=== PATIENT | female | born 1960 | race American Indian/Alaskan Native ===

== ENCOUNTER 2019-10-02 20:47 | Observation (INO) | payer OTHER ==
--- NOTE | 2019-10-02 20:58 | Emergency Department Report ---
Blank Doc - Documentation Documentation: 59-year-old female that presents with dizziness, weakness, and headache. HX of CVA. STated symptoms started at 3 AM this morning (>4.5 hours). This initial assessment/diagnostic orders/clinical plan/treatment(s) is/are subject to change based on patient's health status, clinical progression and re- assessment by fellow clinical providers in the ED. Further treatment and workup at subsequent clinical providers discretion. Patient/guardians urged not to elope from the ED as their condition may be serious if not clinically assessed and managed. Initial orders include: 1- Patient sent to [facility] for further evaluation and treatment 2- stroke protocol ordered
[2019-10-02 21:20] LABS: Basophils # (Auto) 0.1 K/mm3 (0.0-0.1); Eosinophils # (Auto) 0.1 K/mm3 (0.0-0.4); Eosinophils % (Auto) 0.8 % (0.0-4.3); Hematocrit 43.6 % (30.3-42.9); Hemoglobin 14.3 gm/dl (10.1-14.3); Lymphocytes # (Auto) 2.5 K/mm3 (1.2-5.4); Lymphocytes % (Auto) 30.8 % (13.4-35.0); Mean Corpuscular HGB Conc 33 % (30-34); Mean Corpuscular Volume 84 fl (79-97); Monocytes # (Auto) 0.6 K/mm3 (0.0-0.8); Monocytes % (Auto) 7.5 % (0.0-7.3); Platelet Count 200 K/mm3 (140-440); Red Blood Count 5.19 M/mm3 (3.65-5.03); Red Cell Distribution Width 14.4 % (13.2-15.2)
[2019-10-02 21:32] LABS: INR 0.86 (0.87-1.13)
[2019-10-02 21:33] LABS: Partial Thromboplastin Time 23.5 Sec. (24.2-36.6); Thrombin Time 15.5 Sec. (15.1-19.6)
[2019-10-02 21:39] LABS: Creatine Kinase MB 2.3 ng/mL (0.0-4.0)
[2019-10-02 21:40] LABS: Alanine Aminotransferase 21 units/L (7-56); Albumin 3.8 g/dL (3.9-5); BUN/Creatinine Ratio 20; Blood Urea Nitrogen 16 mg/dL (7-17); Calcium 9.8 mg/dL (8.4-10.2); Hemolysis Index 15
[2019-10-02] MEDS ORDERED: NITROGLYCERIN 0.4 MG TAB SUBL SL PRN (22:27)
[2019-10-02] MEDS ORDERED: METOCLOPRAMIDE 10 MG/2 ML INJ IV ONE (22:27)
[2019-10-02] MEDS ORDERED: diphenhydrAMINE 50 MG/ML VIAL IV ONE (22:27)
[2019-10-02] MEDS ORDERED: FAMOTIDINE 20 MG/2 ML INJ IV ONE (22:27)
--- NOTE | 2019-10-02 22:29 | Emergency Department Report ---
ED General Adult HPI - General Chief complaint: Headache Stated complaint: AGGARWAL,DIZZY Time Seen by Provider: 10/02/19 20:55 Source: patient, RN notes reviewed Mode of arrival: Ambulatory Limitations: No Limitations - History of Present Illness Initial comments: The patient is a 59-year-old female. The patient is not known to this provider previously. She has a past medical history of morbid obesity, stroke, diabetes, and presents to the ER with multiple complaints. The patient's first complaint is headache and dizziness. The headache is frontal, bitemporal, midline, and occipital. The headache has been intermittent over the past week. She gets frequent headaches. This headache is not described as sudden or thunderclap in nature. It did not reach maximal intensity within an hour. It is not the most intense headache of her life. The headache is associated with dizziness, which she further describes as a sensation of unsteady gait. This started at approximately 3:00 Wednesday morning. There is no tinnitus. There is no sensation of room spinning. The patient indicates that she felt unsteady on her feet. It is now resolved. Simultaneously, the patient also endorses a complaint of central chest pressure, which did not radiate to the back, arms and neck, no vomiting, no diaphoresis, but thinks that she may have had a recent road trip to [place]. There is no recent leg pain or leg swelling, hematemesis or bright red blood per rectum. Her trip to [place] was over 9 hours. The patient reports that she is not having ataxia at this time. She has mild chest discomfort at this time. -: Gradual, Sudden Location: head, chest Radiation: other Quality: other Consistency: other Improves with: other Worsens with: other - Related Data Allergies Allergy/AdvReac Type Severity Reaction Status Date / Time metformin Allergy Diarrhea Verified 10/02/19 20:52 ED Review of Systems ROS: Stated complaint: AGGARWAL,DIZZY Other details as noted in HPI Constitutional: denies: fever Eyes: denies: vision change ENT: denies: congestion Respiratory: denies: wheezing Cardiovascular: chest pain. denies: syncope Genitourinary: denies: dysuria Musculoskeletal: myalgia Skin: denies: lesions Neurological: headache, weakness, abnormal gait. denies: numbness, pa resthesias, vertigo Psychiatric: anxiety Hematological/Lymphatic: denies: easy bleeding ED Past Medical Hx - Social History Smoking Status: Never Smoker Substance Use Type: None ED Physical Exam - General Limitations: No Limitations General appearance: alert, in no apparent distress, obese - Head Head exam: Present: atraumatic, normocephalic - Eye Eye exam: Present: normal appearance, PERRL, EOMI. Absent: nystagmus - ENT ENT exam: Present: normal exam, normal orophraynx, mucous membranes moist, normal external ear exam - Neck Neck exam: Present: normal inspection, full ROM. Absent: tenderness, meningism us - Respiratory Respiratory exam: Present: normal lung sounds bilaterally. Absent: respiratory distress - Cardiovascular Cardiovascular Exam: Present: regular rate, normal rhythm, normal heart sounds. Absent: bradycardia, tachycardia, irregular rhythm, systolic murmur, diastolic murmur, rubs, gallop - GI/Abdominal GI/Abdominal exam: Present: soft. Absent: distended, tenderness, guarding, rebound, rigid, pulsatile mass - Extremities Exam Extremities exam: Present: normal inspection, full ROM, pedal edema, other (2+ pulses noted in the bilateral upper and lower extremities. There is no long bony tenderness. The pelvis is stable. The muscular compartments are soft. There is no palpable cord. There is no redness, pus or streaking.). Absent: calf tenderness - Back Exam Back exam: Present: normal inspection. Absent: CVA tenderness (L), paraspinal tenderness, vertebral tenderness - Neurological Exam Neurological exam: Present: alert (there is no past-pointing. There is normal [id number]-lo-duzo. There is no pronator drift. Patient walks with a broad-based gait which she states is chronic for her.), oriented X3, other (there is no facial droop. Tongue is midline. Extraocular movements are intact bilaterally. Walking with a steady gait. Speaking in full sentences. Normal appropriate thought content. 5 out of 5 strength in 4 extremities. Sensation is intact to light touch in 4 extremities.). Absent: motor sensory deficit - Psychiatric Psychiatric exam: Present: anxious - Skin Skin exam: Present: warm, dry, intact, normal color. Absent: rash ED Course Vital Signs 10/02/19 10/02/19 10/02/19 20:53 20:55 22:12 Temperature 98.4 F 98.4 F Pulse Rate 67 69 75 Respiratory 18 18 16 Rate Blood Pressure 187/92 187/92 O2 Sat by Pulse 100 100 100 Oximetry 10/02/19 10/02/19 10/02/19 22:15 22:22 23:00 Temperature Pulse Rate 70 64 Respiratory 16 18 16 Rate Blood Pressure 161/83 161/83 O2 Sat by Pulse 98 99 Oximetry 10/02/19 10/03/19 10/03/19 23:45 00:00 01:26 Temperature Pulse Rate 76 76 Respiratory 14 Rate Blood Pressure 162/73 161/83 O2 Sat by Pulse 97 97 Oximetry 10/03/19 10/03/19 10/03/19 01:30 01:40 01:50 Temperature Pulse Rate 71 72 67 Respiratory 16 14 13 Rate Blood Pressure O2 Sat by Pulse 98 98 98 Oximetry 10/03/19 10/03/19 10/03/19 02:00 02:10 02:20 Temperature Pulse Rate 70 70 66 Respiratory 12 13 16 Rate Blood Pressure O2 Sat by Pulse 97 98 97 Oximetry 10/03/19 10/03/19 10/03/19 02:30 02:40 02:50 Temperature Pulse Rate 66 63 61 Respiratory 13 14 12 Rate Blood Pressure O2 Sat by Pulse 97 97 96 Oximetry 10/03/19 10/03/19 10/03/19 03:00 03:10 03:17 Temperature Pulse Rate 69 65 72 Respiratory 15 14 Rate Blood Pressure 187/88 O2 Sat by Pulse 98 96 Oximetry 10/03/19 03:20 Temperature Pulse Rate 75 Respiratory 10 L Rate Blood Pressure O2 Sat by Pulse 97 Oximetry - Reevaluation(s) Reevaluation #1: 10/03/19 00:02 Differential diagnosis, including but not limited to: Complex migraine, TIA, intracranial lesion, GERD, gastritis, hiatal hernia, pneumonia, acute coronary syndrome, pulmonary embolism Assessment and plan: 59-year-old female with 2 complaints Complaints #1, headache with associated intermittent dizziness, and unsteady gait. Headache present for greater than 4.5 hours, symptoms started more than 4.5 hours ago, patient has NIH score of 0, and she is therefore not a TPA candidate. Given NIH score of 0 at this time, is not meet criteria for TPA, and does not have any lateralizing findings that would necessitate emergent large vessel imaging. Noncontrast CT scan of the brain is negative for acute disease. Headache by history is not historically consistent with subarachnoid hemor rhage. We will treat her headache supportively and symptomatically, she'll need to be evaluated for TIA given elevated ABCD 2 score. Complaint #2, chest pain Not tachycardic, tachypneic or hypoxic. However, EKG abnormal without prior for comparison. Reports a recent road trip to [place]. Patient moderate risk for major adverse cardiac event as per heart score (4), therefore, d-dimer will be sent, serial troponins, EKGs will be obtained, if no emergent pathology identified in the emergency room, plan to admit patient to the medical service for accelerated cardiac risk stratification. The patient does not have a true IV contrast allergy as she does not have anaphylaxis or airway symptoms. On a prior contrast exposure, she developed some flushed feeling and nausea, which appears to be consistent with known possible side effect. Patient is appropriately educated. Reevaluation #2: 10/03/19 01:[address] scan of the brain is negative for acute disease. CT scan of the chest is negative for acute disease. Troponin negative 2. Patient at moderate risk for major adverse cardiac event,, therefore, we will admit her for expedited workup and risk stratification. Hospital physician, Dr. Tony to admit the patient. ED Medical Decision Making - Lab Data Result diagrams: 10/02/19 21:07 10/02/19 21:07 Vital Signs 10/02/19 10/02/19 10/02/19 20:53 20:55 22:12 Temperature 98.4 F 98.4 F Pulse Rate 67 69 69 Respiratory 18 18 14 Rate Blood Pressure 187/92 187/92 O2 Sat by Pulse 100 100 99 Oximetry 10/02/19 10/02/19 10/02/19 22:15 22:22 23:45 Temperature Pulse Rate 70 76 Respiratory 16 18 Rate Blood Pressure 161/83 162/73 O2 Sat by Pulse 98 99 Oximetry Lab Results 10/02/19 10/02/19 10/02/19 Range/Units 21:07 21:07 21:07 WBC 8.3 (4.5-11.0) K/mm3 RBC 5.19 H (3.65-5.03) M/mm3 Hgb 14.3 (10.1-14.3) gm/dl Hct 43.6 H (30.3-42.9) % MCV 84 (79-97) fl MCH 27 L (28-32) pg MCHC 33 (30-34) % RDW 14.4 (13.2-15.2) % Plt Count 200 (140-440) K/mm3 Lymph % (Auto) 30.8 (13.4-35.0) % Ashe % (Auto) 7.5 H (0.0-7.3) % Eos % (Auto) 0.8 (0.0-4.3) % Baso % (Auto) 1.0 (0.0-1.8) % Lymph # 2.5 (1.2-5.4) K/mm3 Ashe # 0.6 (0.0-0.8) K/mm3 Eos # 0.1 (0.0-0.4) K/mm3 Baso # 0.1 (0.0-0.1) K/mm3 Seg Neutrophils % 59.9 (40.0-70.0) % Seg Neutrophils # 5.0 (1.8-7.7) K/mm3 PT 11.8 L (12.2-14.9) Sec. INR 0.86 L (0.87-1.13) APTT 23.5 L (24.2-36.6) Sec. Thrombin Time 15.5 (15.1-19.6) Sec. Sodium 136 L (137-145) mmol/L Potassium 3.6 (3.6-5.0) mmol/L Chloride 96.4 L (98-107) mmol/L Carbon Dioxide 28 (22-30) mmol/L Anion Gap 15 mmol/L BUN 16 (7-17) mg/dL Creatinine 0.8 (0.7-1.2) mg/dL Estimated GFR > 60 ml/min BUN/Creatinine Ratio 20 % Glucose 289 H (65-100) mg/dL Calcium 9.8 (8.4-10.2) mg/dL Magnesium (1.7-2.3) mg/dL Total Bilirubin 0.40 (0.1-1.2) mg/dL AST 14 (5-40) units/L ALT 21 (7-56) units/L Alkaline Phosphatase 77 (35-129) units/L Total Creatine Kinase 116 (30-135) units/L CK-MB (CK-2) 2.3 (0.0-4.0) ng/mL CK-MB (CK-2) Rel Index 1.9 (0-4) Troponin T < 0.010 (0.00-0.029) ng/mL Total Protein 7.0 (6.3-8.2) g/dL Albumin 3.8 L (3.9-5) g/dL Albumin/Globulin Ratio 1.2 % TSH (0.270-4.200) mlU/mL Urine Bilirubin (Negative) Urine RBC (Auto) (0.0-6.0) /HPF U Epithel Cells (Auto) (0-13.0) /HPF 10/02/19 10/02/19 10/02/19 Range/Units 23:02 23:02 23:02 WBC (4.5-11.0) K/mm3 RBC (3.65-5.03) M/mm3 Hgb (10.1-14.3) gm/dl Hct (30.3-42.9) % MCV (79-97) fl MCH (28-32) pg MCHC (30-34) % RDW (13.2-15.2) % Plt Count (140-440) K/mm3 Lymph % (Auto) (13.4-35.0) % [place]he % (Auto) (0.0-7.3) % Eos % (Auto) (0.0-4.3) % Baso % (Auto) (0.0-1.8) % Lymph # (1.2-5.4) K/mm3 Ashe # (0.0-0.8) K/mm3 Eos # (0.0-0.4) K/mm3 Baso # (0.0-0.1) K/mm3 Seg Neutrophils % (40.0-70.0) % Seg Neutrophils # (1.8-7.7) K/mm3 PT (12.2-14.9) Sec. INR (0.87-1.13) APTT (24.2-36.6) Sec. Thrombin Time (15.1-19.6) Sec. Sodium (137-145) mmol/L Potassium (3.6-5.0) mmol/L Chloride (98-107) mmol/L Carbon Dioxide (22-30) mmol/L Anion Gap mmol/L BUN (7-17) mg/dL Creatinine (0.7-1.2) mg/dL Estimated GFR ml/min BUN/Creatinine Ratio % Glucose (65-100) mg/dL Calcium (8.4-10.2) mg/dL Magnesium 1.70 (1.7-2.3) mg/dL Total Bilirubin (0.1-1.2) mg/dL AST (5-40) units/L ALT (7-56) units/L Alkaline Phosphatase (35-129) units/L Total Creatine Kinase 124 (30-135) units/L CK-MB (CK-2) (0.0-4.0) ng/mL CK-MB (CK-2) Rel Index (0-4) Troponin T < 0.010 (0.00-0.029) ng/mL Total Protein (6.3-8.2) g/dL Albumin (3.9-5) g/dL Albumin/Globulin Ratio % TSH 3.930 (0.270-4.200) mlU/mL Urine Bilirubin (Negative) Urine RBC (Auto) (0.0-6.0) /HPF U Epithel Cells (Auto) (0-13.0) /HPF 10/02/19 Range/Units 23:29 WBC (4.5-11.0) K/mm3 RBC (3.65-5.03) M/mm3 Hgb (10.1-14.3) gm/dl Hct (30.3-42.9) % MCV (79-97) fl MCH (28-32) pg MCHC (30-34) % RDW (13.2-15.2) % Plt Count (140-440) K/mm3 Lymph % (Auto) (13.4-35.0) % [place]he % (Auto) (0.0-7.3) % Eos % (Auto) (0.0-4.3) % Baso % (Auto) (0.0-1.8) % Lymph # (1.2-5.4) K/mm3 Ashe # (0.0-0.8) K/mm3 Eos # (0.0-0.4) K/mm3 Baso # (0.0-0.1) K/mm3 Seg Neutrophils % (40.0-70.0) % Seg Neutrophils # (1.8-7.7) K/mm3 PT (12.2-14.9) Sec. INR (0.87-1.13) APTT (24.2-36.6) Sec. Thrombin Time (15.1-19.6) Sec. Sodium (137-145) mmol/L Potassium (3.6-5.0) mmol/L Chloride (98-107) mmol/L Carbon Dioxide (22-30) mmol/L Anion Gap mmol/L BUN (7-17) mg/dL Creatinine (0.7-1.2) mg/dL Estimated GFR ml/min BUN/Creatinine Ratio % Glucose (65-100) mg/dL Calcium (8.4-10.2) mg/dL Magnesium (1.7-2.3) mg/dL Total Bilirubin (0.1-1.2) mg/dL AST (5-40) units/L ALT (7-56) units/L Alkaline Phosphatase (35-129) units/L Total Creatine Kinase (30-135) units/L CK-MB (CK-2) (0.0-4.0) ng/mL CK-MB (CK-2) Rel Index (0-4) Troponin T (0.00-0.029) ng/mL Total Protein (6.3-8.2) g/dL Albumin (3.9-5) g/dL Albumin/Globulin Ratio % TSH (0.270-4.200) mlU/mL Urine Bilirubin Neg (Negative) Urine RBC (Auto) 3.0 (0.0-6.0) /HPF U Epithel Cells (Auto) 1.0 (0-13.0) /HPF - EKG Data -: EKG Interpreted by In EKG shows normal: sinus rhythm Rate: normal - EKG Data When compared to previous EKG there are: previous EKG unavailable 10/03/19 00:04 No prior EKGs available for comparison. Sinus rhythm, 73 bpm, premature atrial contractions. Left axis deviation, left anterior fascicular block, motion artifact, QTC prolonged. Not consistent with STEMI - Radiology Data Radiology results: report reviewed, image reviewed X-ray the chest is unremarkable for acute disease. Noncontrast CT scan of the brain is negative for acute disease. Critical care attestation.: If time is entered above; I have spent that time in minutes in the direct care of this critically ill patient, excluding procedure time. ED Disposition Clinical Impression: Acute chest pain, TIA (transient ischemic attack) Disposition: 09 OP ADMIT IP TO THIS HOSP Is pt being admited?: Yes Condition: Good
--- NOTE | 2019-10-02 23:11 | XRay Report ---
CHEST 1 VIEW INDICATION / CLINICAL INFORMATION: cp sob. COMPARISON: None available. FINDINGS: SUPPORT DEVICES: None. HEART / MEDIASTINUM: No significant abnormality. LUNGS / PLEURA: No significant pulmonary or pleural abnormality.. No pneumothorax. ADDITIONAL FINDINGS: No significant additional findings. IMPRESSION: 1. No acute findings. Signer Name: Andrew Curry MD Signed: 10/02/2019 11:07 PM Workstation Name: [id number]
--- NOTE | 2019-10-02 23:14 | Cat Scan Report ---
CT HEAD WITHOUT CONTRAST INDICATION: Stroke symptoms TECHNIQUE: Axial slices were obtained through the head. Coronal and sagittal reformatted images were obtained. COMPARISON: None available. FINDINGS: There is no intracranial hemorrhage or extra-axial fluid collection. Ventricles, basilar cisterns, an d sulci appear within normal limits for age. There is no mass lesion or midline shift. No acute jus torial infarct is identified. Bone windows demonstrate no acute osseous abnormality. Paranasal sinuses and mastoid air cells appear clear. TECHNIQUE: All CT scans at this facility use dose modulation, iterative reconstruction, automated ex posure control, weight based dosing, when appropriate, to reduce radiation dose to as low as reasonab ly achievable. IMPRESSION: 1. No acute intracranial abnormality. Signer Name: Andrew Curry MD Signed: 10/02/2019 11:09 PM Workstation Name: [id number]
[2019-10-03 00:03] LABS: Bacteria,Urine 1+ /HPF (Negative); Bilirubin,Urine NEG (Negative); Blood,Urine NEG (Negative); Color,Urine Straw (Yellow); Urobilinogen,Urine < 2.0 mg/dL (<2.0)
[2019-10-03 00:08] LABS: INR 0.87 (0.87-1.13)
[2019-10-03] MEDS ORDERED: methylPREDNISolone Sod Succinate 125 MG/2 ML INJ IV ONE (00:27)
[2019-10-03] MEDS ORDERED: ONDANSETRON 4 MG/2 ML INJ IV ONE (00:27)
[2019-10-03] MEDS ORDERED: diphenhydrAMINE 50 MG/ML VIAL IV ONE (00:27)
[2019-10-03] MEDS ORDERED: FAMOTIDINE 20 MG/2 ML INJ IV ONE (00:27)
--- NOTE | 2019-10-03 01:43 | Cat Scan Report ---
CTA of the chest with 3D Reconstruction Indication: ,cp + ddimer, light headed near syncope Technique: TECHNIQUE: Axial CT images were obtained through the chest after injection of 100 cc of Omnipaque 300 IV contrast. 3 plane MIP reconstructions were produced. All CT scans at this location are performed using CT dose reduction for ALARA by means of automated exposure control. COMPARISON: None Automatic exposure control was utilized in an attempt to reduce radiation dose. Findings: Pulmonary arteries: The main pulmonary artery and right and left pulmonary artery branches fill satis factorily with contrast. No pulmonary embolus is seen. Lungs: The lungs are clear. Mediastinum: Heart size is normal. No adenopathy is seen. Aorta: Normal in diameter. No dissection seen within limits of this exam. Impression: No pulmonary embolus is seen Signer Name: Andrew Curry MD Signed: 10/03/2019 1:39 AM Workstation Name: [id number]
[2019-10-03] MEDS ORDERED: ASPIRIN 81 MG TAB CHEW PO ONE (01:57)
[2019-10-03] MEDS ORDERED: oxyCODONE /ACETAMINOPHEN 5-325MG TAB PO PRN (03:03)
[2019-10-03] MEDS ORDERED: ONDANSETRON 4 MG/2 ML INJ IV PRN (03:03)
[2019-10-03] MEDS ORDERED: ACETAMINOPHEN 325 MG TAB PO PRN (03:03)
--- NOTE | 2019-10-03 03:05 | History and Physical Report ---
History of Present Illness History of present illness: 59-year-old woman with a history of hypertension, diabetes, hypothyroidism, CVA with right-sided weakness comes to the emergency room complaints of chest pain that started today. Patient stated that pain is in the epigastric area which she describe as a sharp achy pain, intermittent, lasting 1 minute, intensity 5/10, no radiation, cannot identify exacerbating factors. Denies shortness of breath, no diaphoresis, palpitation, vomiting. Admits to nausea . Also complained that she felt very dizzy and had difficulty ambulating and had a headache that was a bandlike sensation around her head , headache and dizziness is now resolved . She is being admitted for further work-up of chest pain Review Of Systems: Constitutional: no weight loss, fever, chills Ears, eyes, nose, mouth and throat: no nasal congestion, no nasal discharge, no sinus pressure, blurry vision, diplopia Neck: No neck pain or rigidity. Cardiovascular: No palpitations Respiratory: No s cough, shortness of breath Gastrointestinal: No hematochezia, abdominal pain Genitourinary : no dysuria, frequency , hematuria Musculoskeletal: no muscle ache , joint pain Integumentary: no rash, no pruritis Neurological: no parathesias, focal weakness Endocrine: no cold or heat intolerance, no polyuria or polydipsia Hematologic/Lymphatic: no easy bruising, no easy bleeding, no gland swelling Allergic/Immunologic: no urticaria, no angioedema. PAST MEDICAL HISTORY: hypertension, diabetes, hypertension, CVA with right- sided weakness PAST SURGICAL HISTORY: Hysterectomy, cholecystectomy FAMILY HISTORY:hypertension, diabetes SOCIAL HISTORY: Denies tobacco, drugs, social alcohol Medications and Allergies Allergies Allergy/AdvReac Type Severity Reaction Status Date / Time metformin Allergy Diarrhea Verified 10/02/19 20:52 Active Meds: Active Medications Acetaminophen (Tylenol) 650 mg PO Q4H PRN PRN Reason: Pain MILD(1-3)/Fever >100.5/AGGARWAL Nitroglycerin (Nitrostat) 0.4 mg SL .Q5MIN PRN PRN Reason: Chest Pain Last Admin: 10/02/19 23:45 Dose: 0.4 mg Documented by: Ondansetron HCl (Zofran) 4 mg IV Q8H PRN PRN Reason: Nausea And Vomiting Oxycodone/Acetaminophen (Percocet 5/325) 1 tab PO Q6H PRN PRN Reason: Pain, Moderate (4-6) Sodium Chloride (Sodium Chloride Flush Syringe 10 Ml) 10 ml IV BID SUJATHA Sodium Chloride (Sodium Chloride Flush Syringe 10 Ml) 10 ml IV PRN PRN PRN Reason: LINE FLUSH Exam - Physical Exam Narrative exam: General Apperance: The patient sitting in bed no acute distress HEENT: Normocephalic, atraumatic. Pupils equally round and reactive to light, extraocular movement intact, and no sclericterus or JVD or thyromegaly or nodule. Neck supple, no carotid bruit, mucous membranes moist, no exudate or erythema Heart: S1-S2, regular is rhythm Lungs: Clear to auscultation bilaterally, breathing comfortable Abdomen: Positive bowel sounds, soft, nontender, nondistended, no organomegaly Extremities: No edema cyanosis clubbing Skin: no rash, nodule, warm and dry Neuro:CN 2 -12 intact, motor/sensory intact, speech is fluent - Constitutional Vitals: Temp Pulse Resp BP Pulse Ox 98.4 F 76 14 161/83 97 10/02/19 20:55 10/03/19 00:00 10/03/19 00:00 10/03/19 00:00 10/03/19 00:00 Results - Labs CBC & Chem 7: 10/02/19 21:07 10/02/19 21:07 Labs: Abnormal lab results 10/02/19 10/02/19 10/02/19 Range/Units 21:07 21:07 21:07 RBC 5.19 H (3.65-5.03) M/mm3 Hct 43.6 H (30.3-42.9) % MCH 27 L (28-32) pg [place] % (Auto) 7.5 H (0.0-7.3) % PT 11.8 L (12.2-14.9) Sec. INR 0.86 L (0.87-1.13) APTT 23.5 L (24.2-36.6) Sec. D-Dimer (0-234) ng/mlDDU Sodium 136 L (137-145) mmol/L Chloride 96.4 L (98-107) mmol/L Glucose 289 H (65-100) mg/dL Albumin 3.8 L (3.9-5) g/dL 10/02/19 Range/Units 23:02 RBC (3.65-5.03) M/mm3 Hct (30.3-42.9) % MCH (28-32) pg [place] % (Auto) (0.0-7.3) % PT 11.9 L (12.2-14.9) Sec. INR (0.87-1.13) APTT (24.2-36.6) Sec. D-Dimer 1058.74 H (0-234) ng/mlDDU Sodium (137-145) mmol/L Chloride (98-107) mmol/L Glucose (65-100) mg/dL Albumin (3.9-5) g/dL - Imaging and Cardiology CT scan - chest: report reviewed CT Scan - head: report reviewed Assessment and Plan Assessment Chest pain Check cardiac enzymes, obtain stress test Start aspirin, Percocet Hypertension Start antihypertensive, add prn hydralazine Diabetes Check fingersticks, initiate insulin sliding scale Hypothyroidism Restart Synthroid DVT prophylaxis
[2019-10-03] MEDS ORDERED: hydrALAZINE 20 MG/1 ML INJ IV ONE (03:15)
[2019-10-03] MEDS ORDERED: hydrALAZINE 20 MG/1 ML INJ ONE (03:19)
[2019-10-03] MEDS ORDERED: ASPIRIN 325 MG TAB ONE (03:19)
[2019-10-03] MEDS ORDERED: hydrALAZINE 20 MG/1 ML INJ IV PRN ×2 (03:32→16:03)
[2019-10-03] MEDS ORDERED: DEXTROSE 50% IN WATER (25GM) 50 ML SYRINGE IV PRN (03:33)
[2019-10-03] MEDS ORDERED: REGADENOSON 0.4 MG/5 ML INJ IV ONE (07:00)
[2019-10-03] MEDS: INSULIN LISPRO 100 UNIT/ML SUB-Q SCH ×4 (07:00→23:38)
[2019-10-03 07:45] LABS: Basophils % (Auto) 0.2 % (0.0-1.8); Eosinophils % (Auto) 0.1 % (0.0-4.3); Hematocrit 42.6 % (30.3-42.9); Hemoglobin 13.8 gm/dl (10.1-14.3); Lymphocytes # (Auto) 0.6 K/mm3 (1.2-5.4); Lymphocytes % (Auto) 9.3 % (13.4-35.0); Mean Corpuscular HGB Conc 32 % (30-34); Mean Corpuscular Volume 83 fl (79-97); Monocytes # (Auto) 0.1 K/mm3 (0.0-0.8); Monocytes % (Auto) 1.3 % (0.0-7.3); Platelet Count 190 K/mm3 (140-440); Red Blood Count 5.11 M/mm3 (3.65-5.03); Red Cell Distribution Width 14.6 % (13.2-15.2)
[2019-10-03 07:55] LABS: BUN/Creatinine Ratio 20; Blood Urea Nitrogen 14 mg/dL (7-17); Calcium 9.5 mg/dL (8.4-10.2); Hemolysis Index 13
[2019-10-03] MEDS: ASPIRIN 81 MG TAB CHEW PO SCH (11:50)
[2019-10-03 12:20] LABS: Creatine Kinase MB 2.1 ng/mL (0.0-4.0)
--- NOTE | 2019-10-03 14:44 | Treadmill Report ---
THALLIUM STRESS TEST LEFT VENTRICLE: Left ventricular chamber size is within normal spread. Perfusion study demonstrates homogeneous uptake of the tracer in all segments, no significant defects identified. Gated analysis demonstrates normal left ventricular systolic function, ejection fraction 66%. CONCLUSION: Normal myocardial perfusion study. JOB# [id number] CA/NTS
[2019-10-03] MEDS ORDERED: LISINOPRIL PO SCH (16:15)
[2019-10-03] MEDS ORDERED: HYDROCHLOROTHIAZIDE PO SCH (16:15)
[2019-10-03] MEDS ORDERED: [UNRECOGNIZED DRUG - OTHER] PO SCH (16:15)
[2019-10-03] MEDS: hydroCHLOROthiazide 12.5 MG CAP PO SCH (16:28)
[2019-10-03] MEDS: glipiZIDE 5 MG TAB PO SCH (16:28)
[2019-10-03] MEDS ORDERED: LISINOPRIL 10 MG TAB PO SCH (17:00)
[2019-10-03] MEDS ORDERED: amLODIPine 5 MG TAB PO SCH (17:00)
[2019-10-03] MEDS ORDERED: amLODIPine 10 MG TAB PO SCH (17:00)
[2019-10-03] MEDS ORDERED: INSULIN LISPRO 100 UNIT/ML SUB-Q ONE (18:14)
--- NOTE | 2019-10-04 03:58 | Event Note ---
Date: 10/03/19 Patient with chest pain, negative stress. BP still uncontrolled. Blood glucose uncontrolled, so not stable for discharge.
[2019-10-04] MEDS ORDERED: LEVOTHYROXINE 100 MCG TAB PO SCH (06:00)
[2019-10-04] MEDS: INSULIN LISPRO 100 UNIT/ML SUB-Q SCH ×3 (06:32→17:31)
[2019-10-04] MEDS: glipiZIDE 5 MG TAB PO SCH ×2 (08:19→17:31)
[2019-10-04 08:55] LABS: BUN/Creatinine Ratio 25; Blood Urea Nitrogen 25 mg/dL (7-17); Calcium 9.5 mg/dL (8.4-10.2); Hemolysis Index 7
[2019-10-04] MEDS: hydroCHLOROthiazide 12.5 MG CAP PO SCH (09:22)
[2019-10-04] MEDS: ASPIRIN 81 MG TAB CHEW PO SCH (09:22)
[2019-10-04] MEDS ORDERED: POTASSIUM CHLORIDE ER 20 MEQ TAB PO NR (10:00)
[2019-10-04] MEDS ORDERED: INSULIN NPH/REGULAR 70/30 INJ SUB-Q ONE (10:30)
[2019-10-04 15:54] VITALS: BP 147/67
--- NOTE | 2019-10-04 17:31 | Discharge Summary ---
Providers - Providers Date of Admission: 10/03/19 01:58 Date of discharge: 10/04/19 Attending physician: JASMYN SWIFT Primary care physician: IMTIAZ DIEGO MD Hospitalization Condition: Good Exam - Constitutional Vitals: Temp Pulse Resp BP Pulse Ox 97.6 F 77 18 147/67 100 10/04/19 12:46 10/04/19 15:48 10/04/19 12:46 10/04/19 15:48 10/04/19 09:24 Plan Activity: advance as tolerated Diet: low fat, low cholesterol, low salt, diabetic Plan of Treatment: 1.Follow up with PCP in 1 week. Follow up with: PRIMARY CARE, [Primary Care Provider] - 3-5 Days Prescriptions: Amlodipine Besylate [Norvasc] 10 mg PO DAILY #30 Insulin NPH/Regular [NovoLIN 70/30] 16 unit SUB-Q BIDDIAB #1 vial Famotidine [Pepcid] 20 mg PO BID #60 tablet
[2019-10-04] MEDS ORDERED: INSULIN NPH/REGULAR 70/30 INJ SUB-Q SCH ×3 (18:00→20:00)
== END 2019-10-04 18:40 | disposition home or self-care (01) ==
LOC: ED 20:47 → 4A 10-03 01:58
PROVIDERS: ADMIT Internal Medicine; ATTEND Internal Medicine
DX: R07.9 Chest pain, unspecified (principal); G45.9 Transient cerebral ischemic attack, unspecified; I10 Essential (primary) hypertension; E11.9 Type 2 diabetes mellitus without complications; E03.9 Hypothyroidism, unspecified; R42 Dizziness and giddiness; E66.01 Morbid (severe) obesity due to excess calories; Z79.899 Other long term (current) drug therapy; Z86.73 Personal history of transient ischemic attack (TIA), and cerebral infarction without residual deficits
CPT/HCPCS: 36415; 70450; 71045; 71275; 78452; 80048; 80053; 81001; 82550; 82553; 82962; 83036; 83735; 84443; 84484; 85025; 85379; 85610; 85670; 85730; 93005; 93010; 93017; 96372; 96374; 96375; 96376; 99284; A9270; A9502; G0378; J0360; J1200; J2765; J2785; J2930; Q9967; J1815